=== PATIENT | female | born 1990 | race Caucasian/White ===

== ENCOUNTER 2017-07-14 21:10 | Outpatient (CLI) | payer SELFPAY ==
--- NOTE | 2017-07-14 21:10 | DT_ITS ---
This patient was seen during an EMR downtime July 09, 2017 - July 16, 2017. This patient may have a combination of paper and electronic documentation or all paper documentation. All documentation is viewable within the e-chart portion of [facility] for each patient visit.
[2017-07-15 11:55] LABS: Group B Strep DNA By PCR POSITIVE (Negative); Probe Check PASS
[2017-07-16 11:28] LABS: Chlamydia Trachomatis by PCR Negative (Negative); Neisserai gonorrhoeae by PCR Negative (Negative); Probe Check PASS; Sample Adequacy Control PASS; Specimen Processing Control PASS
[2017-07-17 06:34] LABS: Bacteria 0 SEEN /hpf (None Seen); Mucous, Urine 0 SEEN /hpf (<or=2+); Red Blood Cells-Urine 0 SEEN /hpf (0-5)
[2017-07-17 06:57] LABS: Color, Urine Straw (Yellow); Glucose, Dipstick NEGATIVE (Normal); Hyaline Cast 0-5 SEEN /lpf (0-5); Ketone-Dipstick Negative (Negative); Leukocyte Esterase-Dipstick Negative /ul (Negative); Nitrite-Dipstick Negative (Negative); Occult Blood-Urine Negative /ul (Negative); Protein-Dipstick Negative (Negative); Squamous Epithelial Cells - UA 0-5 SEEN /hpf (5-10); Transitional Epithelial - Ur 0-5 SEEN /hpf (0-5); Urine Bilirubin Dipstick Negative (Negative); Urine Clarity Sl Cldy (Clear); Urine Urobilinogen Normal (Normal); White Blood Cells 0-5 SEEN /hpf (0-5)
[2017-07-17 13:11] LABS: ROM Internal Control Test YES-OK TO RESULT pt. (Internal QC); ROM Patient Test Negative (Negative)
[2017-07-17 15:41] LABS: Hematocrit 36.6 % (37-47); Hemoglobin 12.2 g/dl (12.0-15.0); Mean Corp Hgb Conc 33.3 g/gl (32-36); Mean Corpuscular Hgb 30.3 pg (27.0-32.0); Mean Corpuscular Volume 90.8 fL (81-99); Mean Platelet Vol. 9.7 fl (6.2-12.0); Platelet Count 210 K/mm3 (150-450); RBC Distribution Width SD 43.1 fl (35.1-43.9); Red Blood Count 4.03 M/mm3 (4.2-5.4); Scan Indicated on CBC? Y/N NO; White Blood Count 10.8 K/mm3 (4.4-11.0)
== END 2017-07-15 23:05 | disposition home or self-care (01) ==
LOC: WPOUT 07-15 09:31 → WP 07-15 09:32
PROVIDERS: Family Provider Obstetrics & Gynecology; PCP Family Medicine; Visit Provider Obstetrics & Gynecology
DX: O60.00 Preterm labor without delivery, unspecified trimester (principal); Z3A.00 Weeks of gestation of pregnancy not specified
CPT/HCPCS: 96360; 96361 ×5; 81001; 84112; 85027; 86850; 86900; 87491; 87591; 87653; J7120; A4216; J0702

== ENCOUNTER 2017-07-20 17:30 | Inpatient (IN) | payer SELFPAY ==
[2017-07-20] MEDS: Lactated Ringers 1,000 ML 50 ML IV (11:31)
[2017-07-20] MEDS: Acetaminophen 500 MG Tablet 1000 MG PO ×2 (13:30→22:36)
[2017-07-20 16:25] LABS: Hemoglobin 13.2 g/dl (12.0-15.0); Mean Corpuscular Volume 90.9 fL (81-99); Platelet Count 216 K/mm3 (150-450); RBC Distribution Width CV 12.9 % (11.6-14.6); RBC Distribution Width SD 42.7 fl (35.1-43.9); White Blood Count 12.5 K/mm3 (4.4-11.0)
[2017-07-20 16:27] LABS: Scan Indicated on CBC? Y/N NO
[2017-07-20 16:59] VITALS: BMI 27.4
--- NOTE | 2017-07-20 17:57 | HP.PCM_ITS ---
History Date of Admission: 07/20/17 Final JUAN MANUEL: 08/21/17 Final JUAN MANUEL Source: US <20 weeks Gestational age: 35 Weeks and 3 Days History of this : This is a 26 year-old, G [], P [], at 35 weeks gestational age. Allergies peanut Allergy (Verified 07/15/17 15:16) Unknown Home Medications: Home Medications Vits [Prenatabs FA] 1 tablet PO DAILY 07/20/17 Smoking Status: Former smoker Alcohol: None Number of Fetus(es): 1 History Past Pregnancies: Past Pregnancies Delivery Date Name GA/Weeks Outcome Route Weight Infant Gender Labor Length Anesthesia Delivery Location Provider FOB Expected Delivery Method: Spontaneous Vaginal Review of Systems Constitutional: Denies: Anorexia, Chills, Fever Cardiovascular: Denies: Chest Pain Respiratory: Denies: Cough Gastrointestinal: Denies: Abdominal Pain Physical Exam General: Alert, Cooperative, No apparent distress Cardiovascular: Regular rate Lungs: Normal air movement Abdomen: Soft, Non Tender, Non-Distended, Appropriate for Gestational Age Extremities:: No edema Assessment/Plan This is a 26 year-old, G 3, P 02/05/2001, at 35 weeks gestational age. labor. Patient is status post betamethasone injections x 2 one week ago threatened labor. Patient now presents at 67 cm 80% effaced and -1 station. heart tones are category 1. There is a bulging bag of adan. It was ruptured for return of clear fluid. She does not desire an epidural. B strep carrier-prophylaxis for this has been given. Anticipate spontaneous vaginal delivery of possibly SGA infant. Cost Accounting Analyst is notified and will attend delivery.
[2017-07-20] MEDS: miSOPROStol 200 MCG Tablet 1000 MCG RECTAL (18:10)
[2017-07-20] MEDS: Oxytocin 30 units/NS 500 ml 30 UNITS/500 ML IV.SOLN 334 UNITS IV (18:10)
[2017-07-20] MEDS: Methylergonovine 0.2 MG/ML Ampul IM (18:32)
--- NOTE | 2017-07-20 18:38 | OP.PCM_ITS ---
Vaginal Delivery Maternal Presentation: Active Labor Amniotic Membrane Rupture Type: Artificial Amniotic Fluid Description: Clear Final JUAN MANUEL: 08/21/17 Final JUAN MANUEL Source: US <20 weeks Gestational age: 35 Weeks and 3 Days Date of Procedure: 07/20/17 Pre-Operative Diagnosis: labor, suspected IUGR Post-Operative Diagnosis: same Surgery/ Procedure Performed: Spontaneous Vaginal Delivery Type of Anesthesia: None Description of Procedure: A vigorous male was delivered [BONNIE] over intact perineum. [A loose nuchal cord ?1 was easily reduced.] The remainder the was delivered with maternal pushing and gentle traction only in less than 15 seconds. The Pitocin infusion was initiated for active management of the third stage. The cord was clamped and cut [after 1 minute]. The was attended to by the waiting nursing staff and clinical pharmacy coordinator. The placenta was delivered spontaneously and intact. The cervix and vagina were intact. Cord gases and cord blood were collected. Sponge and needle counts were correct. A vaginal sweep was completed by me. Presentation: BONNIE Placental Delivery Description: Spontaneous Placenta Disposition: [facility] Cord Vessel Description: 3 Vessels Nuchal Cord Compression: Without compression Cord Gases drawn per routine: ABG, VBG Cord Entanglement: Around neck x 1, loose Drain: - - none Estimated Blood Loss: 400 A gender: Male Episiotomy Description: None Laceration: None Medications given after delivery: IV Pitocin, IM Methergin - x1 for mild atony without hemorrhage, - - cytotec 1000 mcg vaginally Complications: None
[2017-07-20] MEDS: Oxytocin 30 units/NS 500 ml 30 UNITS/500 ML IV.SOLN 167 UNITS IV (18:40)
--- NOTE | 2017-07-20 18:41 | DCINST_ITS ---
Discharge Diet: No Restrictions Discharge Activity: Return to Normal Activity, May not drive while taking narcotic pain medications., May Shower May resume sexual activity in: 4-6 weeks Additional Activity Instructions:: Nothing in the vagina for 4-6 weeks. You may return to work/school in 6 weeks. Call your doctor if your incision/area has: Continuous Slow Oozing, Sudden Increased Bleeding, Increased Pain/ Swelling, Increased Redness, Foul Smelling Discharge Additional Instructions: If you experience any of the following, contact your healthcare provider. * Bleeding that soaks a pad every hour for 2 hours * Fever 100.4 or higher * Unrelieved incision or abdominal pain * Swelling, redness, discharge or bleeding from your incision or episiotomy site * Your incision begins to separate * Problems urinating (including inability to urinate or burning while urinating) . * Visual changes * Severe headache * Flu-like symptoms * Pain or redness in one of both of your breasts * Pain, warmth, tenderness or swelling in your legs, especially the calf area * Frequent nausea and vomiting * Symptoms of depression or anxiety If you experience any of the following, call 911 or go to the nearest Emergency Room. * Chest pain * Problems breathing * Seizure activity * Partial or complete paralysis of a body part, slurred speech, weakness or drooping of the face, or a sudden inability to walk or hold your balance Allergies/Adverse Reactions: Allergies peanut Allergy (Verified 07/15/17 15:16) Unknown Medications to take at Discharge Ibuprofen [Motrin] 600 mg PO Q6H PRN #60 tab 07/20/17 Vits [Prenatabs FA ] 1 tablet PO DAILY 07/20/17 The following prescriptions were given: Ibuprofen [Motrin] 600 mg PO Q6H PRN #60 tab PRN Reason: Pain Please Follow Up With: Janet Flores MD - [phone] When: Call to make an appointment with your doctor's office in 6 weeks. If you had elevated Blood Pressure or 4th degree laceration you will need to be seen in 2 weeks. Primary Care Physician: Juancho Morejon [Primary Care Provider] -
[2017-07-20] MEDS: 0.9% Saline Lock 10 ML Syringe IV (19:45)
--- NOTE | 2017-07-20 20:00 | NURSING ---
Pt. up to bathroom prior to visit to SCN - clot appx. size of tennis ball noted at bottom of toilet. Other bleeding on pad noted to be small. FF @ u/2. Will cont. to observe.
[2017-07-20 21:45] VITALS: BP 110/65; PULSE 76; RESP 18; TEMP 36.8; O2SAT 96
[2017-07-20 22:13] LABS: Hematocrit 41.5 % (37-47); Hemoglobin 13.8 g/dl (12.0-15.0); Mean Corp Hgb Conc 33.3 g/gl (32-36); Mean Corpuscular Volume 90.2 fL (81-99); Mean Platelet Vol. 9.8 fl (6.2-12.0); Platelet Count 198 K/mm3 (150-450); RBC Distribution Width CV 12.9 % (11.6-14.6); RBC Distribution Width SD 42.2 fl (35.1-43.9); White Blood Count 16.2 K/mm3 (4.4-11.0)
[2017-07-20 22:19] LABS: Scan Indicated on CBC? Y/N NO
--- NOTE | 2017-07-20 23:13 | NURSING ---
Upon assessment of post void #2, several clots estimated to be around 50cc, were passed along with 700cc dark red urine. Pt also reported feeling weak and lightheaded upon returning to bed after being in [facility]N previously. VS: 98.2 76 110/65 18 96% RA, fundus was 3 below and firm. these findings were reported to Dr Singleton d/t pt's hx of PP hemorrhage. orders given to draw AM CBC along with HIV labs stat and report if abnormal.
[2017-07-20 23:40] LABS: HIV - WCH Non-Reactive (Nonreactive)
[2017-07-21 00:32] VITALS: BP 112/64; PULSE 74; RESP 16; TEMP 37.1; O2SAT 95
[2017-07-21 04:32] VITALS: BP 97/56; PULSE 59; RESP 16; TEMP 36.7
[2017-07-21] MEDS: Naproxen 250 MG Tablet PO ×2 (04:34→18:13)
[2017-07-21 08:00] VITALS: BP 102/67; PULSE 68; RESP 16; TEMP 36.8
[2017-07-21] MEDS: Acetaminophen 500 MG Tablet 1000 MG PO (13:01)
[2017-07-21 13:10] VITALS: BP 107/65; PULSE 71; RESP 16; TEMP 37; O2SAT 97
--- NOTE | 2017-07-21 15:09 | PCM.PN.OB ---
Subjective: pain well controlled, average lochia. - Physical Exam General: Alert, Cooperative, No apparent distress Vital Signs Temp Pulse Resp BP Pulse Ox 98.2 F 68 16 102/67 95 07/21/17 08:00 07/21/17 08:00 07/21/17 08:00 07/21/17 08:00 07/21/17 00:32 Oxygen Delivery Method Room Air Weight: 74.843 kg Body Mass Index (BMI) 27.4 Intake and Output for Last 24 Hours 07/19/17 07/20/17 07/21/17 23:59 23:59 23:59 Intake Total 1736 / 1736 Output Total 1900 / 1900 Balance -164 / -164 Laboratory Tests Past 24 Hrs 07/20/17 07/20/17 07/20/17 11:25 11:25 22:05 WBC 12.5 H RBC 4.40 Hgb 13.2 Hct 40.0 MCV 90.9 MCH 30.0 MCHC 33.0 RDW 12.9 RDW Differential 42.7 Plt Count 216 MPV 10.0 HIV 1&2 Antibody Non-Reactive Blood Type O POSITIVE Antibody Screen NEGATIVE 07/20/17 22:05 WBC 16.2 H RBC 4.60 Hgb 13.8 Hct 41.5 MCV 90.2 MCH 30.0 MCHC 33.3 RDW 12.9 RDW Differential 42.2 Plt Count 198 MPV 9.8 HIV 1&2 Antibody Blood Type Antibody Screen Medical Necessity - Tobacco Use Smoking Status: Former smoker Assessment/Plan PPD#1 doing well hgb stable pain controlled infant in SCN, IUGR, doing well patient plans bottle feeding
[2017-07-21 17:00] VITALS: BP 101/58; PULSE 68; RESP 18; TEMP 36.7; O2SAT 96
[2017-07-21 22:18] VITALS: BP 99/70; PULSE 60; RESP 16; TEMP 36.4; O2SAT 98
[2017-07-22 03:00] VITALS: BP 99/54; PULSE 67; RESP 16; TEMP 37.1
[2017-07-22] MEDS: Naproxen 250 MG Tablet PO (05:52)
[2017-07-22 08:53] VITALS: BP 103/57; PULSE 70; RESP 18; TEMP 37.2
--- NOTE | 2017-07-22 11:05 | PCM.PN.OB ---
Subjective: pain well controlled, average lochia, no C/o - Physical Exam General: Alert, Cooperative, No apparent distress Vital Signs Temp Pulse Resp BP Pulse Ox 98.9 F 70 18 103/57 L 98 07/22/17 08:53 07/22/17 08:53 07/22/17 08:53 07/22/17 08:53 07/21/17 22:18 Oxygen Delivery Method Room Air Weight: 74.843 kg Body Mass Index (BMI) 27.4 Intake and Output for Last 24 Hours 07/20/17 07/21/17 07/22/17 23:59 23:59 23:59 Intake Total 1736 / 1736 Output Total 1900 / 1900 Balance -164 / -164 Medical Necessity - Tobacco Use Smoking Status: Former smoker Assessment/Plan PPD#2 infant in SCN patient plans bottlefeeinding d/c to hotel later today
== END 2017-07-22 18:33 | disposition home or self-care (01) | DRG 775 ==
LOC: WPOUT 18:11
PROVIDERS: Admitting Provider Obstetrics & Gynecology; Family Provider Obstetrics & Gynecology; PCP Family Medicine; Visit Provider Obstetrics & Gynecology
DX: O36.5930 Maternal care for other known or suspected poor fetal growth, third trimester, not applicable or unspecified (principal); O60.14X0 Preterm labor third trimester with preterm delivery third trimester, not applicable or unspecified; O69.81X0 Labor and delivery complicated by cord around neck, without compression, not applicable or unspecified; Z3A.35 35 weeks gestation of pregnancy; Z37.0 Single live birth
CPT/HCPCS: 59050; 85027; 86703; 86850; 86900; 99218; J7120; A4216; G0378